=== PATIENT | male | born 1985 ===

== ENCOUNTER 2020-10-13 07:58 | Outpatient (CLI) | payer OTHER ==
[2020-10-13 08:58] VITALS: BP 112/76
--- NOTE | 2020-10-13 08:58 | SLEEP CARE CONSULTATION ---
Information from patient questionnaire entered by Karla Orantes. I have reviewed and concur with the information entered by Karla Orantes. This document represents the service I personally performed and the decisions made by me, Suki Modi ARNP. History of Present Illness Service Date and Time: 10/13/2020 0758 Reason for Visit: New patient Chief Complaint: reports: Unrefreshed sleep, Snoring, Excessive daytime sleepiness, Observed pauses in breathing, Fatigue Date of Onset: 5 years plus Usual bedtime: 10:30 - 11 pm; midnight to 0100 on weekends Time it takes to fall asleep: 30-60 minutes Snores at night: Yes Observed to quit breathing while asleep: Yes Sleeps alone due to snoring: No (she has sometimes) Number of times waking at night: 1-2 Reasons for waking at night: reports: Snoring, Pain. denies: Choking, Gasping for air Toss, Turn, or Twitch while sleeping: Yes Recalls having dreams: Yes Usually gets out of bed at: 6:30 am; weekends [id number] Feels refreshed in the morning: No Morning headache: Yes (4-5 days of week, they last through morning and sometimes all day) Sleepy or fatigued during the day: Yes Ever fallen asleep while driving: Yes (drowsy driving, no accidents) Takes day naps: No Dreams during day naps: Yes Prior sleep studies: No Additional HPI information: I had the pleasure of seeing INÉS VINES today regarding the possibility of him having a sleep disorder. His current complaints are snoring, observed pauses in breathing, unrefreshed sleep, excessive daytime sleepiness and fatigue. His has been telling him that he snores loud and a lot. She has told him sometimes he stops breathing during the night. He gets very sleepy during the day and has trouble concentrating and remembering things. He has changed his job in [employer] and decided to get this check out. He is going to be transferred in early November. He states his father snores loudly and he thinks he is on a machine for sleep apnea. - Parasomnia Symptoms Ever been unable to move upon waking from sleep: No Walks in sleep: No Talks in sleep: Yes (more when younger) Ever acted out dreams in sleep: No Ever felt weak in the knees when startled or emotional: Yes (has not fallen to ground, caught himself) Bothered by creepy, crawly, restless sensations in legs: No Problems with memory or concentration: Yes Subjective Initial [place] Sleepiness Scale score: 19 (in 2020) Past Medical History Past Medical History: reports: Anxiety, Depression, GERD. denies: Hypertension (has has some elevated blood pressures alternating with regular BP in last 2 years), Diabetes, Arrythmia, Mood disorder Social History The patient's occupation is a Active . Patient is and lives in [place]. Have you smoked in the past 12 months: No Cigarettes per day (20/pack): 30 Years of smokin Quit date: 15 years ago Smoking Pack Years: 3.0 Alcohol use: Yes Alcohol amount and frequency: 1 drink 1-2 times a month Caffeine use: Yes Caffeine amount and frequency: 1-2 cups in the morning Family History Family history of sleep disordered breathing: Yes (father) Family Hx Sleep Apnea: Father: Snoring, Sleep apnea - Treated Allergies and Home Medications Drug allergies reviewed: Yes (NKDA) Home medication list reviewed: Yes Allergy and home medication list: Omeprazole Naproxen Halobetasol Flexeril Review of Systems Cardiovascular: reports: high blood pressure (occasional) Gastrointestinal: reports: heartburn, abdominal pain Neurological: reports: headaches. denies: seizure, head trauma Psychiatric: reports: anxiety, depression. denies: mood disorder Ear/Nose/Throat: reports: nose bleeds, wisdom teeth removed. denies: injury to nose, tonsillectomy Endocrine: reports: sluggishness, too hot or cold, unexplained weakness Musculoskeletal: reports: joint pain, neck pain, back pain, muscle pain or cramping, mobility problems Immunologic: denies: allergies to food or environment Physical Exam Blood Pressure: 112/76 Cuff size: wrist Heart Rate: 69 O2 Saturation: 95 Height: 5 ft 10 in Weight: 195 lb Body Mass Index: 27.9 BMI Classification: Overweight Neck circumference: 16.25 (inches) Nostrils: patent to airflow Hard palate: normal Uvula: normal Uvula visualization: 100% Mallampati Class I Tongue: enlarged in size with teeth byrd on lateral edges Tonsils: 1+ Chin and jaw: normal size and position Neck: normal w/o lymphadenopathy or thyromegaly Heart: regular rate and rhythm Lungs: clear bilaterally Impression and Plan 1. Suspected Obstructive Sleep Apnea-Hypopnea Syndrome, as suggested by a history of loud and irregular snoring, observed cessation of breath while asleep, morning headache, unrefreshed sleep, cognitive impairment, and excessive daytime sleepiness. Narrow oropharynx and obesity are common predisposing factors for obstructive sleep apnea-hypopnea syndrome. I recommend proceeding to polysomnography to confirm the diagnosis and to assess severity. If the patient has significant sleep disordered breathing, a manual CPAP titration study will also be performed to find the optimal treatment pressure. I informed the patient of what the sleep studies involve and after some discussion, obtained agreement to proceed. The pathophysiology of obstructive sleep apnea-hypopnea syndrome was discussed with the patient and health risks of cardiovascular and cerebrovascular disease if not treated. AAS brochure for obstructive sleep apnea-hypopnea syndrome given and reviewed. Risks of drowsy driving discussed in detail and patient advised to avoid long distance driving and to tail puller at the first sign of drowsiness. Patient agreed to plan. * Schedule polysomnography +- manual CPAP titration study and return in 1-2 weeks after the study to discuss result and initiate therapy. * Avoid long distance driving or driving when feeling sleepy. * Avoid alcohol, sedative and muscle relaxant around bedtime. * Attempt to lose weight. * Review instructions provided by trained office staff on how to prepare for the sleep study. * Return for follow-up after sleep study completed. Counseling Topics: Weight loss health impact Visit Type: In Office Time Spent with Patient (minutes): 30 Provider Statement: I spent 100% of the Face to Face Visit with the patient with greater than 50% spent counseling the patient and coordination of care.
== END 2020-10-13 07:59 | disposition home or self-care (01) ==
LOC: SC 07:58
PROVIDERS: ATTEND Nurse Practitioner Family
DX: R06.83 Snoring (principal); G47.8 Other sleep disorders; R51.9 Headache, unspecified; R41.89 Other symptoms and signs involving cognitive functions and awareness; G47.10 Hypersomnia, unspecified; R06.81 Apnea, not elsewhere classified; E66.3 Overweight; Z68.27 Body mass index [BMI] 27.0-27.9, adult; Z87.891 Personal history of nicotine dependence
CPT/HCPCS: 99203; 99212

== ENCOUNTER 2020-10-31 12:00 | Outpatient (CLI) | payer OTHER | END 2020-10-31 12:01 | disposition home or self-care (01) | LOC: SC 12:00 | PROVIDERS: ATTEND Nurse Practitioner Family | DX: R06.83 Snoring (principal); R53.83 Other fatigue; R51.9 Headache, unspecified; G47.8 Other sleep disorders; R06.81 Apnea, not elsewhere classified; G47.10 Hypersomnia, unspecified; F32.9 Major depressive disorder, single episode, unspecified | CPT/HCPCS: 95806 ==

== ENCOUNTER 2020-11-07 09:34 | Outpatient (CLI) | payer OTHER ==
--- NOTE | 2020-11-07 10:08 | SLEEP CARE CONSULTATION ---
Information from patient questionnaire entered by Karla Orantes. I have reviewed and concur with the information entered by Karla Orantes. This document represents the service I personally performed and the decisions made by , Suki Modi ARNP. History of Present Illness Service Date and Time: 11/07/2020 0934 Initial [place] Sleepiness Scale score: 19 (in 2020) Current [place] Sleepiness Scale score: 11 Additional HPI information: INÉS VINES returns for follow up and results of the recently performed home sleep study. The patient was informed of the following findings: no significant sleep disorder breathing with an average AHI 2.4 and vannessa oxygen saturation of 88%. I explained the pathophysiology behind obstructive sleep apnea. Patient does not have sleep apnea and was advised how weight gain could increase the risk of developing sleep apnea in the future. I strongly encouraged the patient to lose weight. Patient has light snoring. Snoring can be reduced by weight loss. Weight loss is best achieved with diet consult. Patient instructed to contact PCP for referral. Snoring can also be treated with an oral appliance from a dentist. Advised to check insurance coverage. In addition, an ENT evaluation can be do to see if other treatment is indicated. Patient counseled not drink alcohol less than 4 hours before bedtime as it can increase snoring and apnea. Patient was cautioned about risks of drowsy driving until sleepiness symptoms resolve. Sleep Study - Results Type of Sleep Study: Home sleep study Prior sleep studies: No Polysomnography/Home Sleep Study results: Physician Impression: The quality of the study is good. The length of the study is adequate (> 240 minutes). Please also see the tabulated and graphic data. 1. No significant sleep-disordered breathing, with an AHI of 2.4/hr and vannessa SaO2 of 88%. During the study, the patient had 4 apneas (4 obstructive, 0 central, 0 mixed) and 9 hypopneas. The longest episode lasted 98.0 seconds. The patient only slept supine during this study(supine AHI was 2.4 and nonsupine, 0.00). 2. Hypoxemia (ICD-10 R09.02), minimal, with the lowest oxygen saturation of 88 % and 0.9 minutes with SaO2 under 90%. Baseline oxygen saturation was normal (Average oxygen saturation was 93%). Allergies and Home Medications Home medication list reviewed: Yes (no changes) Review of Systems Review of systems same as previous: Yes (no changes) Physical Exam Heart Rate: 70 O2 Saturation: 98 Height: 5 ft 10 in Weight: 194 lb Body Mass Index: 27.8 BMI Classification: Overweight Impression and Plan Snoring but no significant sleep disordered breathing. Patient advised that often weight loss will reduce snoring as well as apnea risk. An oral appliance can also be used for snoring. This would require a dental consultation. Patient cautioned not to use other online appliances as can cause bite issues. A list of accredited dentists in [facility] and one local dentist who makes oral appliances is available in office as needed. Patient is advised to check if insurance will cover. An ENT consult can also be helpful to determine if any other treatment is an option. * Attempt to lose weight * Avoid alcohol consumption near bedtime * The patient is cautioned about driving until sleepiness is completely resolved. * Return as needed. Counseling Topics: Weight loss health impact Visit Type: In Office Time Spent with Patient (minutes): 13 Provider Statement: I spent 100% of the Face to Face Visit with the patient with greater than 50% spent counseling the patient and coordination of care.
== END 2020-11-07 09:35 | disposition home or self-care (01) ==
LOC: SC 09:34
PROVIDERS: ATTEND Nurse Practitioner Family
DX: R06.83 Snoring (principal); E66.3 Overweight; Z68.27 Body mass index [BMI] 27.0-27.9, adult
CPT/HCPCS: 99212